=== PATIENT | male | born 1980 | race Two or more races ===

== ENCOUNTER 2017-04-15 10:33 | Emergency (ER) | payer OTHER ==
[2017-04-15 10:48] VITALS: BP 115/65; PULSE 66; RESP 16; TEMP 98.1; O2SAT 97
--- NOTE | 2017-04-15 10:49 | EDPHY ---
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 He states that at 1 point he pushed the tank and had a sudden severe pain in his right shoulder. He did not fall. He denies neck head or back pain. No paresthesias. REVIEW OF SYSTEMS: Constitutional: denies: chills, fever, recent illness, recent injury EENTM: denies: blurred vision, double vision, nose congestion Respiratory: denies: cough, shortness of breath Cardiac: denies: chest pain, irregular heart rate, lightheadedness, palpitations Gastrointestinal/Abdominal: denies: abdominal pain, diarrhea, nausea, vomiting, blood streaked stools Genitourinary: denies: dysuria, frequency, hematuria, pain Musculoskeletal: See HPI Skin: denies: lesions, rash, jaundice, bruising Neurological: denies: headache, numbness, paresthesia, tingling, dizziness, weakness Hematologic/Lymphatic: denies: blood clots, easy bleeding, easy bruising Immunologic/allergic: denies: HIV/AIDS, transplant EXAM: GENERAL: Well-appearing, well-nourished and in no acute distress. HEAD: Atraumatic, normocephalic. EYES: Pupils equal round and reactive to light, extraocular movements intact, sclera anicteric, conjunctiva are normal. ENT: TMs normal, nares patent, oropharynx clear without exudates. Moist mucous membranes. NECK: Normal range of motion, supple without lymphadenopathy or JVD. LUNGS: Breath sounds clear to auscultation bilaterally and equal. No wheezes rales or rhonchi. HEART: Regular rate and rhythm without murmurs, rubs or gallops. ABDOMEN: Soft, nontender, normoactive bowel sounds. No guarding, no rebound. No masses appreciated. BACK: No CVA tenderness, no spinal tenderness, step-offs or deformities EXTREMITIES: Patient has pain to his right shoulder with elevation laterally or anteriorly. He points to his upper scapula and anterior shoulder as the locations of pain. No swelling or deformity. Normal pulses and sensation distally. Normal reflexes. NEUROLOGICAL: Cranial nerves II through XII grossly intact. Normal speech, normal gait. 5/5 strength, normal movement in all extremities, normal sensation PSYCH: Normal mood, normal affect. SKIN: Warm, dry, normal turgor, no visible rashes or lesions. Source: Patient Exam Limitations: No limitations - Medical/Surgical History Hx Asthma: No Hx Chronic Respiratory Disease: No Hx Diabetes: No Hx Cardiac Disease: No Hx Renal Disease: No Hx Cirrhosis: No Hx Alcoholism: No - Family History Significant Family History: No pertinent family hx - Social History Smoking Status: Never smoked Alcohol Use: Sober Drug Use: None Constitutional: Initial Vital Signs Temperature (C) 36.7 C 04/15/17 10:34 Heart Rate 66 04/15/17 10:34 Respiratory Rate 16 04/15/17 10:34 Blood Pressure 115/65 04/15/17 10:34 O2 Sat (%) 97 04/15/17 10:34 O2 Delivery Mode Room Air Allergies/Adverse Reactions: No Known Allergies Allergy (Verified 04/15/17 11:15) Home Medications: Medication Instructions Recorded NK [No Known Home Meds] 04/15/17 Medical Decision Making - Diagnostics Imaging Results: Imaging Impressions Shoulder X-Ray 04/15/17 10:45 Impression: Calcific tendinitis of the rotator cuff. Consider ultrasound directed calcium aspiration by our musculoskeletal radiology section. Results discussed with Dr. Grimaldo. X-ray: Shoulder x-ray was obtained. I viewed the images myself on the PACS system. My interpretation of the images is: negative for acute disease . The radiologist interpretation is pending. Imaging: Discussed imaging studies w/ call center coordinator Radiologist Procedures: Procedure: Splint placement. A sling splint was applied. After application of the splint I returned and re- examined the patient. The splint was adequately immobilizing the joint and distal to the splint the patient's circulation and sensation was intact. ED Course/Re-evaluation: Suspect the patient has a rotator cuff injury. Will obtain x-rays and likely refer to Orthopedics for further evaluation and MRI. This happened at work and he may be required to go through his company's physician. 11:20 a.m. I discussed the x-ray read with Dr. Keene. He feels that there is a calcified bursitis and that it may be benefit from aspiration under ultrasound guidance by interventional Radiology. This is an elective procedure I discussed the case with Dr. Heath Ramirez agrees. I have given the patient a prescription for outpatient procedure and he will follow up with worker's Comp. He has also been given resources to follow up with Orthopedics. Patient and understand agree with this plan. Differential Diagnosis: Partial list of the Differential diagnosis considered include but were not limited to; sprain, rotator cuff tear and although unlikely based on the history and physical exam, I also considered fracture, dislocation, vascular injury, nerve injury. I discussed these differential diagnoses and the plan with the [patient] as well as the usual and expected course. The [patient understands] that the diagnosis is provisional and that in medicine we are not always correct and that further workup is often warranted. Usual and customary warnings were given. All of the [patient's] questions were answered. The [ patient was] instructed to return to the emergency department should the symptoms at all worsen or return, otherwise to followup with the physician as we discussed. - Data Points Medications Given: Discontinued Medications Ibuprofen (Motrin) 600 mg PO EDNOW ONE Stop: 04/15/17 11:37 Last Admin: 04/15/17 11:44 Dose: 600 mg Departure - Departure Disposition: Home, Routine, Self-Care Clinical Impression: Rotator cuff injury Qualifiers: Encounter type: initial encounter Laterality: right Qualified Code(s): S46.001A - Unspecified injury of muscle(s) and tendon(s) of the rotator cuff of right shoulder, initial encounter Condition: Fair Instructions: Rotator Cuff Injury (ED) Additional Instructions: Call interventional Radiology to schedule an interventional ultrasound to aspirate the calcium inside your shoulder bursa. As an alternative to seeing the orthopedist. No work and no lifting greater than 20 lbs until evaluated by workman's comp or orthopedist. Referrals: Avery Lemon MD [Medical Doctor] - As per Instructions Anthony Ramirez MD [Medical Doctor] - As per Instructions Stand Alone Forms: Outpatient Radiology Order, Work Comp Follow Up, Work Excuse
[2017-04-15] MEDS ORDERED: IBUPROFEN 200 MG TAB PO ONE ×2 (11:36→11:42)
== END 2017-04-15 11:44 | disposition home or self-care (01) ==
LOC: CED 10:33
DX: S46.001A Unspecified injury of muscle(s) and tendon(s) of the rotator cuff of right shoulder, initial encounter (principal); X58.XXXA Exposure to other specified factors, initial encounter; Y92.69 Other specified industrial and construction area as the place of occurrence of the external cause; Y99.0 Civilian activity done for income or pay; Y93.B2 Activity, push-ups, pull-ups, sit-ups
CPT/HCPCS: 73030-PO; A4565

== ENCOUNTER 2018-07-17 18:21 | Emergency (ER) | payer MEDICAID, OTHER ==
[2018-07-17 18:38] VITALS: BP 115/63
--- NOTE | 2018-07-17 18:41 | EDPHY ---
H & P Time Seen by Provider: 07/17/18 18:29 HPI/ROS: CHIEF COMPLAINT: Left foot puncture HISTORY OF PRESENT ILLNESS: The patient is a 38-year-old man who was walking in his backyard barefoot. He thinks that he stepped on a splinter or piece of wood that punctured his left foot. He does not suspect glass or nail. The he denies other injuries. Severity: Moderate Modifying factors: None REVIEW OF SYSTEMS: Constitutional: denies: chills, fever, recent illness, recent injury EENTM: denies: blurred vision, double vision, nose congestion Respiratory: denies: cough, shortness of breath Cardiac: denies: chest pain, irregular heart rate, lightheadedness, palpitations Gastrointestinal/Abdominal: denies: abdominal pain, diarrhea, nausea, vomiting, blood streaked stools Genitourinary: denies: dysuria, frequency, hematuria, pain Musculoskeletal: denies: joint pain, muscle pain Skin: See HPI Neurological: denies: headache, numbness, paresthesia, tingling, dizziness, weakness Hematologic/Lymphatic: denies: blood clots, easy bleeding, easy bruising Immunologic/allergic: denies: HIV/AIDS, transplant 10 systems reviewed and negative except as noted EXAM: GENERAL: Well-appearing, well-nourished and in no acute distress. HEAD: Atraumatic, normocephalic. EYES: Pupils equal round and reactive to light, extraocular movements intact, sclera anicteric, conjunctiva are normal. ENT: TMs normal, nares patent, oropharynx clear without exudates. Moist mucous membranes. NECK: Normal range of motion, supple without lymphadenopathy or JVD. LUNGS: Breath sounds clear to auscultation bilaterally and equal. No wheezes rales or rhonchi. HEART: Regular rate and rhythm without murmurs, rubs or gallops. ABDOMEN: Soft, nontender, normoactive bowel sounds. No guarding, no rebound. No masses appreciated. BACK: No CVA tenderness, no spinal tenderness, step-offs or deformities EXTREMITIES: Normal range of motion, no pitting or edema. No clubbing or cyanosis. NEUROLOGICAL: Cranial nerves II through XII grossly intact. Normal speech, normal gait. 5/5 strength, normal movement in all extremities, normal sensation , normal reflexes PSYCH: Normal mood, normal affect. SKIN: Small puncture wound left foot, no obvious debris visible. Somewhat dirty. Source: Patient Exam Limitations: No limitations - Personal History Current Tetanus/Diphtheria Vaccine: Yes Tetanus Vaccine Date: within 10 years - Medical/Surgical History Hx Asthma: No Hx Chronic Respiratory Disease: No Hx Diabetes: No Hx Cardiac Disease: No Hx Renal Disease: No Hx Cirrhosis: No Hx Alcoholism: No Hx HIV/AIDS: No Hx Splenectomy or Spleen Trauma: No Other PMH: Denies - Family History Significant Family History: No pertinent family hx - Social History Smoking Status: Never smoked Alcohol Use: Sober Drug Use: None Constitutional: Initial Vital Signs Temperature (C) 36.8 C 07/17/18 18:33 Heart Rate 63 07/17/18 18:33 Respiratory Rate 18 07/17/18 18:33 Blood Pressure 115/63 07/17/18 18:33 O2 Sat (%) 95 07/17/18 18:33 O2 Delivery Mode Room Air Allergies/Adverse Reactions: No Known Allergies Allergy (Verified 07/17/18 18:38) Home Medications: Medication Instructions Recorded NK [No Known Home Meds] 04/15/17 Medical Decision Making Procedures: The patient's foot was anesthetized with 0.5% bupivacaine neb nothing around the puncture wound. The wound was then slightly enlarged 11 blade scalpel and was able to pull a 1.5 cm splinter out from deep in this tissue. The margins were then cleaned up another smaller splinter was removed. The wound was then irrigated copiously and left open and bandaged with antibiotic ointment. ED Course/Re-evaluation: I was able to removed successfully a single large splinter and several smaller splinters. Patient tolerated this well. His wound was then cleaned and dressed with antibiotic ointment. We discussed healing as well as follow-up and indications for returning. Differential Diagnosis: Partial list of the Differential diagnosis considered include but were not limited to; foreign body, puncture wound and although unlikely based on the history and physical exam, I also considered laceration, fracture. I discussed these differential diagnoses and the plan with the patient as well as the usual and expected course. The patient understands that the diagnosis is provisional and that in medicine we are not always correct and that further workup is often warranted. Usual and customary warnings were given. All of the patient's questions were answered. The patient was instructed to return to the emergency department should the symptoms at all worsen or return, otherwise to followup with the physician as we discussed. Departure - Departure Disposition: Home, Routine, Self-Care Clinical Impression: Puncture wound of foot, left Qualifiers: Encounter type: initial encounter Qualified Code(s): S91.332A - Puncture wound without foreign body, left foot, initial encounter Condition: Good Instructions: Puncture Wound (ED) Referrals: Fritz Burden DO [Doctor of Osteopathy] - 2-3 days, call for appt.
== END 2018-07-17 19:05 | disposition home or self-care (01) ==
LOC: CED 18:21
PROC: 0JCR0ZZ Extirpation of Matter from Left Foot Subcutaneous Tissue and Fascia, Open Approach (ICD-10-PCS; principal; 2018-07-17)
DX: S91.342A Puncture wound with foreign body, left foot, initial encounter (principal); W26.8XXA Contact with other sharp object(s), not elsewhere classified, initial encounter; Y93.01 Activity, walking, marching and hiking; Y92.096 Garden or yard of other non-institutional residence as the place of occurrence of the external cause; Y99.0 Civilian activity done for income or pay; Z18.33 Retained wood fragments